=== PATIENT | male | born 1990 | race African-American/Black ===

== ENCOUNTER 2020-02-17 03:16 | Emergency (ER) | payer SELFPAY ==
[2020-02-17] MEDS ORDERED: Acetaminophen 500 MG TAB ONE ×2 (04:03→04:06)
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
== END 2020-02-17 04:14 | disposition home or self-care (01) ==
LOC: ERS 03:16
DX: S60.221A Contusion of right hand, initial encounter (principal); J45.909 Unspecified asthma, uncomplicated; F17.210 Nicotine dependence, cigarettes, uncomplicated; W22.8XXA Striking against or struck by other objects, initial encounter

== ENCOUNTER 2020-02-19 07:49 | Emergency (ER) | payer SELFPAY ==
[2020-02-19] MEDS ORDERED: Acetaminophen 500 MG TAB ONE (08:24)
[2020-02-19] MEDS ORDERED: Ibuprofen 800 MG TAB ONE (08:24)
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
== END 2020-02-19 09:04 | disposition home or self-care (01) ==
LOC: ERS 07:49
DX: S62.316A Displaced fracture of base of fifth metacarpal bone, right hand, initial encounter for closed fracture (principal); J45.909 Unspecified asthma, uncomplicated; F17.210 Nicotine dependence, cigarettes, uncomplicated; W22.8XXA Striking against or struck by other objects, initial encounter
CPT/HCPCS: 26600